=== PATIENT | female | born 1965 | race Caucasian/White ===

== ENCOUNTER → 2017-12-12 | Outpatient (CLI) | payer OTHER ==
--- NOTE | 2017-12-12 16:24 | DIAGNOSTIC IMAGING REPORT ---
LUMBAR SPINE 2 OR 3 VIEWS CLINICAL HISTORY: 52 years-old Female presenting with LOW BACK PAIN. TECHNIQUE: Frontal, lateral, and coned in lateral views of lumbar spine were obtained. COMPARISON: None. FINDINGS: No significant scoliosis. Normal lumbar lordosis. Vertebral bodies maintain normal height and alignment. Intervertebral disc heights preserved. Minimal osteophytosis noted at L5-S1. No other significant degenerative change. No radiographic evidence of osseous neural foraminal narrowing allowing for suboptimal positioning on lateral view. No compression deformity or subluxation. Sacroiliac joints congruent. Arcuate lines of the sacrum intact. Lung bases clear. Nonobstructive bowel gas pattern. No evidence of nephrolithiasis. IMPRESSION: No advanced degenerative change or radiographic evidence of acute osseous Electronically signed by: Carlos Alberto Villafuerte M.D. 12/12/2017 4:23 PM Dictated Date/Time: 12/12/2017 4:21 PM
== END | disposition home or self-care (01) ==
LOC: C.RAD 15:46
PROVIDERS: ATTEND Family Medicine
DX: M54.5 Low back pain (principal)

== ENCOUNTER 2021-11-17 12:09 | Observation (INO) ==
--- NOTE | 2021-11-17 12:40 | XRay Report ---
XR chest 2V PA/lateral CLINICAL HISTORY: Chest Pain. COMPARISON STUDY: 04/19/2019 TECHNIQUE: 2 views of the chest FINDINGS: Frontal and lateral radiographs of the chest demonstrate the cardiomediastinal silhouette to be withi n normal limits. There is a decreased inspiratory effort with elevation of the hemidiaphragms and microstrategy architect wding of the bronchovascular markings at the lung bases and centrally. The lungs are clear of alveola r opacities. There is no evidence for effusion bilaterally. There is no evidence for vascular congest ion. There is no acute osseous pathology. IMPRESSION: 1. There is a decreased inspiratory effort with otherwise no acute chest disease. ACT 112: Negative or not required by law. Electronically signed by: Arie Pierce M.D. 11/17/2021 12:39 PM
[2021-11-17 13:12] LABS: Basophils # (auto) 0.05 K/uL (0-0.2); Basophils % (auto) 0.6 %; Eosinophils # (auto) 0.41 K/uL (0-0.5); Eosinophils % (auto) 4.8 %; Hematocrit (blood only) 39.8 % (37-47); Immature Granulocytes # (auto) 0.02 K/uL (0.00-0.02); Immature Granulocytes % (auto) 0.2 %; Lymphocytes # (auto) 2.33 K/uL (1.2-3.4); Lymphocytes % (auto) 27.4 %; Mean Corpuscular Hemoglobin 28.4 pg (25-34); Mean Corpuscular Hgb Conc 32.7 g/dL (32-36); Mean Corpuscular Volume 86.9 fL (80-100); Mean Platelet Volume 9.8 fL (7.4-10.4); Monocytes # (auto) 0.53 K/uL (0.11-0.59); Monocytes % (auto) 6.2 %; Neutrophils # (auto) 5.16 K/uL (1.4-6.5); Neutrophils % (auto) 60.8 %; Platelet Count 439 K/uL (130-400); RDW Coefficient of Variation 15.8 % (11.5-14.5); RDW Standard Deviation 50.5 fL (36.4-46.3); Red Blood Count 4.58 M/uL (4.2-5.4)
[2021-11-17 13:21] LABS: Partial Thromboplastin Time 26.2 Seconds (21.0-31.0); Prothrombin Time 10.6 Seconds (9.0-12.0)
[2021-11-17 13:34] LABS: Albumin Globulin Ratio 1.5 (0.9-2); Albumin Level 4.2 gm/dl (3.4-5.0); Bilirubin,Total 0.3 mg/dl (0.2-1.0); Calcium 9.4 mg/dl (8.5-10.1); Creatinine Clr Calc Pharmacy 76.3 ml/min; Est GFR (African American) 103.3 ml/min; Est GFR (Non-African American) 89.1 ml/min; Globulin 2.8 gm/dl (2.5-4.0); Potassium 4.2 mmol/L (3.5-5.1)
[2021-11-17] MEDS ORDERED: ASPIRIN CHEW 324 MG PO STA (14:15)
[2021-11-17 14:18] LABS: D Dimer 260 ug/L FEU (0-500)
--- NOTE | 2021-11-17 14:47 | History & Physical Report ---
Date of Service November 17, 2021 Assessment & Plan (1) Chest pain: Plan: - Initial troponin 2.3, repeat 2.4. - D-dimer negative. - EKG without ST segment or T wave inversions, normal sinus rhythm and regular rate. - Continue to trend troponin, EKG with chest pains. - TSH with reflex T4 ordered given hx of tachycardia - Had been prescribed metoprolol previously for tachycardia, however patient has chosen not to take. - Patient has chronic SOB with exertion, states she can walk about a block before getting winded. Unknown if she would tolerate an exercise stress test. She had previously refused a dobutamine stress test because she would not allow an IV to be placed. Will make her NPO at midnight in case decision is made tomorrow to perform stress test. - Suspect her chest pain/tachycardia may be partially related to stressors in her personal life. She appeared tearful and anxious at one point during my visit, seemed to be arguing with someone on the phone prior to my entry. Per previous psychiatry note, it seems patient has had several deaths in family and previous life events that she admits causes her to frequently be very stressed and anxious. (2) Type 2 diabetes mellitus: Plan: - On metformin at home, will hold this. - Accu-Cheks with meals and bedtime, sliding scale insulin. - A1c in AM. - Heart healthy/CC diet - Prescribed gabapentin for neuropathy, however she doesn't take it. (3) Bipolar affective disorder: Plan: - Continue Viibryd, Topamax. (4) Generalized anxiety disorder: Plan: -Continue clonazepam 0.5 mg HS (sometimes requires second dose if first not effective after one hour). Plan: -Admit to med/tele. -SCDs, Lovenox for DVT ppx. -Full Code. History of Present Illness Primary Care Provider: Jackie Waddell DO Patient is a 55-year-old female with past medical history DM2, anxiety, bipolar affective disorder, PTSD, previous drug use now in remission who presents today with pain since this morning. Patient was sitting down when she had onset of left-sided chest pain, rated 77.5/10 in intensity. She describes the pain sensation as if someone is pushing on her chest. It is not better or worse with position changes, nonreproducible, or worse with respirations. Reports some shortness of breath with it but denies nausea/vomiting, diaphoresis, radiation of it to arm/neck/jaw/back. She had not taken anything at home for alleviation, and decided to present for evaluation as she states she has actually been having chest pain every 3 to 4 days for the past several years. Typically only last 3 to 5 minutes and can be associated with her heart racing, both at rest and exertion. She states she is a very anxious person and gets worked up often, which causes her heart to race like this and brings on the chest pain. Prior to today's events, she states she has been in her normal state of health, denies fever/chills, night sweats, myalgias, weakness, dyspnea at rest, cough, congestion, orthopnea, PND, edema, abdominal pain, nausea, vomiting, diarrhea, constipation. She took her regular scheduled ASA 81 this morning prior to arriv al and received an additional dose of 243 mg of aspirin in ED, rates her pain now is a 3-4. Patient was evaluated for similar episode of chest pain in March 2019. At that time, she had an event monitor which revealed NSR with episodes of chest pain that coincided with sinus tachycardia. Exercise stress test was also done then, no ischemic changes noted on stress echo at 80% MPHR with appropriate blood pressure and no arrhythmias noted. In ED, vital signs stable and within normal limits. Labs significant for alk phos elevated 123, initial troponin negative at 2.3, repeat 2 hours later 2.4. All other labs unremarkable. Chest x-ray showed decreased inspiratory effort, otherwise no acute cardiopulmonary disease. Allergies Allergy/AdvReac Type Severity Reaction Status Date / Time iodine Allergy Severe CAN'T Verified 11/17/21 13:54 REMEMBER duloxetine [From Cymbalta] Allergy Unknown CAN'T Verified 11/17/21 13:54 REMEMBER meperidine [From Demerol] Allergy Unknown CAN'T Verified 11/17/21 13:54 REMEMBER propoxyphene Allergy Unknown CAN'T Verified 11/17/21 13:54 [From Darvocet-N] REMEMBER sertraline [From Zoloft] Allergy Unknown CAN'T Verified 11/17/21 13:54 REMEMBER Home Medications Medication Instructions Recorded Confirmed Type cetirizine 10 mg tablet 10 mg PO DAILY 04/01/19 11/17/21 History vilazodone 20 mg tablet (Viibryd) 20 mg PO QAM tab 04/01/19 11/17/21 History aspirin 81 mg tablet,delayed 81 mg PO DAILY 03/23/20 11/17/21 History release (Adult Aspirin Regimen) celecoxib 200 mg capsule 200 mg PO BID 11/17/21 11/17/21 History clonazepam 0.5 mg tablet 0.5 mg PO HS 11/17/21 11/17/21 History cyanocobalamin (vitamin B-12) 500 500 mcg PO DAILY 11/17/21 11/17/21 History mcg tablet cyclobenzaprine 5 mg tablet 5 - 10 mg PO HS PRN 11/17/21 11/17/21 History metformin 1,000 mg tablet 1,000 mg PO BID 11/17/21 11/17/21 History topiramate 100 mg capsule 100 mg PO HS 11/17/21 11/17/21 History sprinkle,extended release 24 hr Past Med/Surg History Medical History (Updated 11/17/21 @ 15:14 by Shaheen Rodriguez MD) Abnormal ECG Bipolar affective disorder Family history of premature CAD Generalized anxiety disorder History of drug abuse Myocardial infarction Palpitations PTSD (post-traumatic stress disorder) Syncope and collapse Type 2 diabetes mellitus Family History Other Coronary heart disease Family history of premature CAD Social History Smoking Status: Never smoker Preferred Language: Cook Islander Feels Safe at Home: Yes Review of Systems Review of Systems: Constitutional: No fever/chills, weakness, fatigue, myalgias, anorexia, night sweats Eyes: No diplopia, no worsening or blurred vision ENT: normal hearing, no trouble swallowing Respiratory: No cough, sputum, dyspnea at rest or on exertion Cardiovascular: No chest pain, tightness or palpitations Abdomen: No pain, nausea, vomiting, diarrhea or constipation : Denies dysuria, hematuria, increased urgency/frequency, urinary retention Musculoskeletal: No joint pain, calf pain, swelling Neurologic: No weakness, numbness/tingling, or balance problems Psychiatric: No anxiety or depression Skin: No rash or itch Physical Exam Physical Exam: General: awake, alert, no apparent distress Head: Normocephalic, atraumatic ENT: PERRL, EOMI, no pharyngeal exudate, mucous membranes moist Chest: Clear to auscultation, on room air, no adventitious breath sounds Cardiac: Regular rate and rhythm, no murmur, no JVD, normal peripheral pulses, good capillary refill Abdominal: NABS x 4 quadrants, soft, nontender to palpation, no rebound, guarding or tenderness Extremities: Normal inspection, no peripheral edema or erythema, calfs nontender to palpation Psych: Normal mood and affect Neuro: AAO x 3, strength intact bilaterally and rated 5/5, no motor deficits, speech is clear, no peripheral sensory deficits Skin: no rash or erythema Results & Data Results & Data ([facility]) Vital Signs (Past 12 Hours) Vital Signs Temp Pulse Pulse Resp BP BP Pulse Ox 11/17/21 13:19 69 18 118/74 97 11/17/21 12:12 36.8 C 81 18 116/81 96 Laboratory Results Abnormal lab results 11/17/21 11/17/21 Range/Units 12:52 12:52 RDW Std Deviation 50.5 H (36.4-46.3) fL RDW Coeff of Claudette 15.8 H (11.5-14.5) % Plt Count 439 H (130-400) K/uL Alkaline Phosphatase 123 H (34-104) U/L Diagnostic Findings Chest X-Ray 11/17/21 12:16 XR chest 2V PA/lateral CLINICAL HISTORY: Chest Pain. COMPARISON STUDY: 04/19/2019 TECHNIQUE: 2 views of the chest FINDINGS: Frontal and lateral radiographs of the chest demonstrate the cardiomediastinal silhouette to be within normal limits. There is a decreased inspiratory effort with elevation of the hemidiaphragms and crowding of the bronchovascular markings at the lung bases and centrally. The lungs are clear of alveolar opacities. There is no evidence for effusion bilaterally. There is no evidence for vascular congestion. There is no acute osseous pathology. IMPRESSION: 1. There is a decreased inspiratory effort with otherwise no acute chest disease. ACT 112: Negative or not required by law. Electronically signed by: Arie Pierce M.D. 11/17/2021 12:39 PM ECG Additional Comments: Normal sinus rhythm Normal ECG When compared with ECG of 19-APR-2019 15:14, No significant change was found Upon my review, there are no ST segment or T wave changes. NSR, regulra rate. Code Status & VTE Plan Code Status Full code. Supervising Physician Co-Signing Physician Notes Patient seen and examined, chart reviewed, case discussed with Tatyana Toussaint and I agree with the assessment and plan as above except as otherwise noted above. General: A&Ox3. NAD. Cooperative. HEENT: Atraumatic, normocephalic. Pulm: CTAB A&P. -wheezes, -rales, -rhonchi. Symmetrical chest rise. No increase work of breathing. No respiratory distress. Cardiac: RRR, -mrg. Radial pulses intact and symmetrical. Abdominal: Nontender, nondistended, soft. BS present. All labs and images reviewed Chest pain , recent increase in anxiety. CP improved at assessment. Cardiac r/o with serial troponins as above. PG Care Time/CCT Total # of Minutes Spent Total Time Spent with Patient: Total time spent is greater than 50% in coordination of care (as documented) at patient's floor/unit and/or counseling patient: Coding Level of Care Code INT OBSERVATION CARE 70M LVL 3 Diagnoses Chest pain R07.9 Type 2 diabetes mellitus E11.9 Bipolar affective disorder F31.9 Generalized anxiety disorder F41.1
--- NOTE | 2021-11-17 15:14 | Emergency Department Note ---
Impression & Plan Retrosternal chest pain ED Provider Note INFORMANT: Patient ED PROVIDER(S): Shaheen Rodriguez MD CHIEF COMPLAINT: Chest pain PLAN: Disposition: Admitted Condition: Good Outpatient prescription management: none Referral: None MEDICAL DECISION MAKING: Patient presented emergency department complaining of chest pain. She has a family history of coronary disease and notes prior history of personal heart related issues. She had unremarkable CBC and chemistry panel. Troponin and D-dimer were negative. Chest x-ray was negative. ECG did not show any significant abnormalities however she was pain-free at the time. I discussed further management in the hospital. Patient was in agreement. [facility]ation [facility] with [facility]. Patient was evaluated in the ER admitted for further management Triage Nursing notes reviewed and agree them. Vital Signs: reviewed and remarkable for no significant abnormalities Differential diagnosis: Cardiac ischemia, aortic dissection, pulmonary embolism, pneumothorax, pneumonia, pericarditis, myocarditis, esophageal rupture, GERD, cholecystitis, pancreatitis, musculoskeletal, as well as other pathologies. Diagnostics interpreted by me: EC Lead ECG performed and revealed Normal sinus rhythm at 68, normal [place], QRS normal. No elevation or depression. No PACs or PVCs Cardiac Monitoring: Cardiac monitoring ordered by me: The patient was placed on continuous cardiac monitoring and observed. It revealed a normal sinus rhythm at 74beats per minute without ectopy or evidence of dysrhythmia. Imaging studies: Chest x-ray. Findings: A chest x-ray was performed and revealed no pneumothorax, effusion, infiltrate, pulmonary edema, free air under the diaphragm, or wide mediastinum. Impression: No acute disease. HPI: The patient is a 55 year old female who presents to the Emergency Room with complaints of retrosternal chest pain. This started just prior to arrival and is currently resolved. The patient also notes the following associated symptoms, mild shortness of breath. The patient has taken no medication for relieving factors. Current pain is rated as 0/10. Pain was a 7 out of 10. Pt denies LOC, headache, fevers, chills, diaphoresis, visual changes, neck pain, nausea, vomiting, abdominal pain, back pain, melena, hematochezia, urinary symptoms, numbness, weakness, lymphadenopathy, rash, or other complaints. ROS: See above HPI for pertinent positives & negatives. A total of 10 systems reviewed and were otherwise negative. PAST MEDICAL HISTORY:See Below , CAD, bipolar PAST SURGICAL HISTORY:See Below, FAMILY HISTORY:See Below, CAD. Brother from heart disease at 54. SOCIAL HISTORY:See Below, non-smoker HOME MEDICATIONS:See Below ALLERGIES:See Below VITALS:See Below PHYSICAL EXAMINATION: GENERAL: Awake, alert, well-appearing, in no distress HENT: Normocephalic, atraumatic. Oropharynx unremarkable. EYES: Normal conjunctiva. Sclera non-icteric. NECK: Inspection normal. Non-tender. Supple. No nuchal rigidity. FROM. No masses. RESPIRATORY: Clear to auscultation. No wheezes. No rales. Normal respiratory effort. CARDIAC: Normal rate. Normal rhythm. No murmurs. No rubs. Extremities warm and well perfused. Pulses equal. No JVD. GI: Soft, non-distended. No tenderness to palpation. No rebound or guarding. No masses. RECTAL: Deferred. MUSCULOSKELETAL: Atraumatic. Chest examination reveals no tenderness. The back is symmetrical on inspection without obvious abnormality. There is no CVA tenderness to palpation. No joint edema. LOWER EXTREMITIES: Calves are equal size bilaterally and non-tender. No edema. No discoloration. NEURO: Normal sensorium. No sensory or motor deficits noted. SKIN: No rash or jaundice noted. Shaheen Rodriguez MD Past Med/Surg History Medical History (Updated 11/17/21 @ 15:14 by Shaheen Rodriguez MD) Abnormal ECG Bipolar affective disorder Family history of premature CAD Generalized anxiety disorder History of drug abuse Myocardial infarction Palpitations PTSD (post-traumatic stress disorder) Syncope and collapse Type 2 diabetes mellitus Family History Other Coronary heart disease Family history of premature CAD Social History Smoking Status: Never smoker Preferred Language: Taiwanese Feels Safe at Home: Yes Allergies Allergies Allergy/AdvReac Type Severity Reaction Status Date / Time iodine Allergy Severe CAN'T Verified 11/17/21 13:54 REMEMBER duloxetine [From Cymbalta] Allergy Unknown CAN'T Verified 11/17/21 13:54 REMEMBER meperidine [From Demerol] Allergy Unknown CAN'T Verified 11/17/21 13:54 REMEMBER propoxyphene Allergy Unknown CAN'T Verified 11/17/21 13:54 [From Darvocet-N] REMEMBER sertraline [From Zoloft] Allergy Unknown CAN'T Verified 11/17/21 13:54 REMEMBER Home Meds Home Medications Medication Instructions Recorded Confirmed cetirizine 10 mg tablet 10 mg PO DAILY 04/01/19 11/17/21 vilazodone 20 mg tablet (Viibryd) 20 mg PO QAM tab 04/01/19 11/17/21 aspirin 81 mg tablet,delayed 81 mg PO DAILY 03/23/20 11/17/21 release (Adult Aspirin Regimen) celecoxib 200 mg capsule 200 mg PO BID 11/17/21 11/17/21 clonazepam 0.5 mg tablet 0.5 mg PO HS 11/17/21 11/17/21 cyanocobalamin (vitamin B-12) 500 500 mcg PO DAILY 11/17/21 11/17/21 mcg tablet cyclobenzaprine 5 mg tablet 5 - 10 mg PO HS PRN 11/17/21 11/17/21 metformin 1,000 mg tablet 1,000 mg PO BID 11/17/21 11/17/21 topiramate 100 mg capsule 100 mg PO HS 11/17/21 11/17/21 sprinkle,extended release 24 hr Results & Data (ED) Vital Signs Vital Signs - 24 hr 11/17/21 12:12 11/17/21 13:19 11/17/21 14:56 Temperature 36.8 C Temperature Source Oral Pulse Rate 81 Pulse Rate [Apical] 69 74 Respiratory Rate 18 18 16 Blood Pressure 116/81 Blood Pressure [Left Arm] 118/74 105/76 Blood Pressure Mean 92 Blood Pressure Mean [Left Arm] 88 85 Blood Pressure Position Sitting Pulse Oximetry 96 97 95 Oxygen Delivery Method Room Air Room Air Sepsis Recent Fever Within 48 Hours No Sepsis New/Unexplained Change in Mental Status No Sepsis Action Taken by Nursing No Action Required Laboratory Data Result diagrams: 11/17/21 12:52 11/17/21 12:52 Lab Results 11/17/21 11/17/21 11/17/21 Range/Units 12:52 12:52 12:52 WBC 8.50 (4.8-10.8) K/uL RBC 4.58 (4.2-5.4) M/uL Hgb 13.0 (12.0-16.0) g/dL Hct 39.8 (37-47) % MCV 86.9 (80-100) fL MCH 28.4 (25-34) pg MCHC 32.7 (32-36) g/dL RDW Std Deviation 50.5 H (36.4-46.3) fL RDW Coeff of Claudette 15.8 H (11.5-14.5) % Plt Count 439 H (130-400) K/uL MPV 9.8 (7.4-10.4) fL Immature Gran % (Auto) 0.2 % Neut % (Auto) 60.8 % Lymph % (Auto) 27.4 % [place] % (Auto) 6.2 % Eos % (Auto) 4.8 % Baso % (Auto) 0.6 % Neut # (Auto) 5.16 (1.4-6.5) K/uL Lymph # (Auto) 2.33 (1.2-3.4) K/uL [place]aston # (Auto) 0.53 (0.11-0.59) K/uL Eos # (Auto) 0.41 (0-0.5) K/uL Baso # (Auto) 0.05 (0-0.2) K/uL Immature Gran # (Auto) 0.02 (0.00-0.02) K/uL PT 10.6 (9.0-12.0) Seconds INR 1.0 (0.9-1.1) APTT 26.2 (21.0-31.0) Seconds PTT Ratio 1.0 D-Dimer (0-500) ug/L FEU Sodium (136-145) mmol/L Potassium (3.5-5.1) mmol/L Chloride (98-107) mmol/L Carbon Dioxide (21-32) mmol/L Anion Gap (3-11) BUN (6-23) mg/dl Creatinine (0.6-1.2) mg/dl Est Cr Clr Drug Dosing ml/min Est GFR ( Amer) ml/min Est GFR (Non-Af Amer) ml/min BUN/Creatinine Ratio (10-20) Glucose (70-99(Fasting)) mg/dl Calcium (8.5-10.1) mg/dl Total Bilirubin (0.2-1.0) mg/dl AST (13-39) U/L ALT (7-52) U/L Alkaline Phosphatase (34-104) U/L Troponin I High Sens 2.3 (0-14) pg/ml Total Protein (6.0-8.3) gm/dl Albumin (3.4-5.0) gm/dl Globulin (2.5-4.0) gm/dl Albumin/Globulin Ratio (0.9-2) 11/17/21 11/17/21 Range/Units 12:52 12:52 WBC (4.8-10.8) K/uL RBC (4.2-5.4) M/uL Hgb (12.0-16.0) g/dL Hct (37-47) % MCV (80-100) fL MCH (25-34) pg MCHC (32-36) g/dL RDW Std Deviation (36.4-46.3) fL RDW Coeff of Claudette (11.5-14.5) % Plt Count (130-400) K/uL MPV (7.4-10.4) fL Immature Gran % (Auto) % Neut % (Auto) % Lymph % (Auto) % [place] % (Auto) % Eos % (Auto) % Baso % (Auto) % Neut # (Auto) (1.4-6.5) K/uL Lymph # (Auto) (1.2-3.4) K/uL [place]aston # (Auto) (0.11-0.59) K/uL Eos # (Auto) (0-0.5) K/uL Baso # (Auto) (0-0.2) K/uL Immature Gran # (Auto) (0.00-0.02) K/uL PT (9.0-12.0) Seconds INR (0.9-1.1) APTT (21.0-31.0) Seconds PTT Ratio D-Dimer 260 (0-500) ug/L FEU Sodium 139 (136-145) mmol/L Potassium 4.2 (3.5-5.1) mmol/L Chloride 107 (98-107) mmol/L Carbon Dioxide 25 (21-32) mmol/L Anion Gap 7 (3-11) BUN 12 (6-23) mg/dl Creatinine 0.75 (0.6-1.2) mg/dl Est Cr Clr Drug Dosing 76.3 ml/min Est GFR ( Amer) 103.3 ml/min Est GFR (Non-Af Amer) 89.1 ml/min BUN/Creatinine Ratio 16.0 (10-20) Glucose 76 (70-99(Fasting)) mg/dl Calcium 9.4 (8.5-10.1) mg/dl Total Bilirubin 0.3 (0.2-1.0) mg/dl AST 14 (13-39) U/L ALT 12 (7-52) U/L Alkaline Phosphatase 123 H (34-104) U/L Troponin I High Sens (0-14) pg/ml Total Protein 7.0 (6.0-8.3) gm/dl Albumin 4.2 (3.4-5.0) gm/dl Globulin 2.8 (2.5-4.0) gm/dl Albumin/Globulin Ratio 1.5 (0.9-2) Administered Medications Discontinued Medications Aspirin (Aspirin Chew 324 Mg) 243 mg PO NOW STA Stop: 11/17/21 14:16 Last Admin: 11/17/21 14:35 Dose: 243 mg Documented by: [id number] Imaging Data Radiologist's Impression: Chest X-Ray 11/17/21 12:16 XR chest 2V PA/lateral CLINICAL HISTORY: Chest Pain. COMPARISON STUDY: 04/19/2019 TECHNIQUE: 2 views of the chest FINDINGS: Frontal and lateral radiographs of the chest demonstrate the cardiomediastinal s ilhouette to be within normal limits. There is a decreased inspiratory effort with elevation of the hemidiaphragms and crowding of the bronchovascular markings at the lung bases and centrally. The lungs are clear of alveolar opacities. There is no evidence for effusion bilaterally. There is no evidence for vascular congestion. There is no acute osseous pathology. IMPRESSION: 1. There is a decreased inspiratory effort with otherwise no acute chest disease. ACT 112: Negative or not required by law. Electronically signed by: Arie Pierce M.D. 11/17/2021 12:39 PM Discharge Plan Visit Data Chief Complaint: Chest Pain Stated Complaint: CHEST PAIN, SOB ED Provider: Shaheen Rodriguez Discharge Problem: Retrosternal chest pain Forms Stand Alone Forms: My [facility] [email or web address] Prescriptions Prescriptions: No Action Viibryd 20 mg tablet 20 mg PO QAM RF: 0 cetirizine 10 mg tablet 10 mg PO DAILY RF: 0 aspirin [Adult Aspirin Regimen] 81 mg tablet,delayed release (DR/EC) 81 mg PO DAILY RF: 0 celecoxib 200 mg capsule 200 mg PO BID RF: 0 clonazepam 0.5 mg tablet 0.5 mg PO HS RF: 0 cyanocobalamin (vitamin B-12) 500 mcg tablet 500 mcg PO DAILY RF: 0 metformin 1,000 mg tablet 1,000 mg PO BID RF: 0 cyclobenzaprine 5 mg tablet 5 - 10 mg PO HS PRN (Reason: MUSCLE SPASMS) RF: 0 topiramate 100 mg cap,sprinkle,ER 24hr dose pack 100 mg PO HS RF: 0 Referrals Referrals: Jackie Waddell DO [Primary Care Provider] -
--- NOTE | 2021-11-17 17:10 | Electrocardiogram Report ---
Test Reason : Blood Pressure : / mmHG Vent. Rate : 068 BPM Atrial Rate : 068 BPM P-R Int : 134 ms QRS Dur : 074 ms QT Int : 410 ms P-R-T Axes : 047 016 034 degrees QTc Int : 435 ms Poor data quality, interpretation may be adversely affected Normal sinus rhythm Normal ECG When compared with ECG of 19-APR-2019 15:14, No significant change was found Confirmed by Bandar Mary ([id number]) on 11/17/2021 5:09:55 PM Referred By: Confirmed By:Bandar Mary
[2021-11-17] MEDS ORDERED: GLUCOSE 10 TABS/TUBE PO PRN (17:35)
[2021-11-17] MEDS ORDERED: POLYETHYLENE (MIRALAX) 17 GM PACK PO PRN (17:35)
[2021-11-17] MEDS ORDERED: GLUCAGON FOR INJ 1 MG VIAL SQ PRN (17:35)
[2021-11-17] MEDS ORDERED: CYCLOBENZAPRINE HCL 5 MG TAB PO PRN (17:35)
[2021-11-17] MEDS ORDERED: ACETAMINOPHEN 325 MG TAB PO PRN (17:35)
[2021-11-17] MEDS ORDERED: ONDANSETRON INJ 2 MG/ML 2 ML VIAL IV PRN (17:35)
[2021-11-17] MEDS ORDERED: GLUCOSE 40% GEL 15 GM TUBE PO PRN (17:35)
[2021-11-17] MEDS ORDERED: DEXTROSE 50% 50 ML SYRINGE IV PRN (17:35)
[2021-11-17] MEDS ORDERED: CARBOHYDRATES FOR HYPOGLYCEMIA PO PRN (17:35)
[2021-11-17] MEDS ORDERED: NITROGLYCERIN SL 0.4 MG/TAB TAB SL PRN (17:35)
[2021-11-17 17:55] LABS: Thyroid Stimulating Hormone 5.254 uIu/ml (0.300-4.500)
[2021-11-17] MEDS ORDERED: NITROGLYCERIN 2% OINTMENT 30GM TUBE EXT SCH (18:00)
[2021-11-17] MEDS: INSULIN ASPART PER UNIT SC SCH ×2 (18:05→22:48)
[2021-11-17 18:26] LABS: T4 Free Thyroxine 0.83 ng/dl (0.61-1.60)
[2021-11-17] MEDS ORDERED: ENOXAPARIN INJ 40 MG/0.4 ML SYR SQ SCH (19:00)
[2021-11-17] MEDS: CeleBREX 200 MG CAP PO SCH (20:35)
[2021-11-17] MEDS ORDERED: clonazePAM 0.5 MG TAB PO SCH (21:00)
[2021-11-17] MEDS ORDERED: TOPIRAMATE 100 MG TAB PO SCH (21:00)
[2021-11-18 05:16] LABS: Basophils # (auto) 0.03 K/uL (0-0.2); Basophils % (auto) 0.4 %; Eosinophils # (auto) 0.38 K/uL (0-0.5); Eosinophils % (auto) 4.8 %; Hematocrit (blood only) 39.1 % (37-47); Hemoglobin 12.7 g/dL (12.0-16.0); Immature Granulocytes # (auto) 0.02 K/uL (0.00-0.02); Immature Granulocytes % (auto) 0.3 %; Lymphocytes # (auto) 2.61 K/uL (1.2-3.4); Lymphocytes % (auto) 33.1 %; Mean Corpuscular Hgb Conc 32.5 g/dL (32-36); Mean Corpuscular Volume 86.3 fL (80-100); Mean Platelet Volume 10.1 fL (7.4-10.4); Monocytes # (auto) 0.46 K/uL (0.11-0.59); Monocytes % (auto) 5.8 %; Neutrophils # (auto) 4.38 K/uL (1.4-6.5); Neutrophils % (auto) 55.6 %; Platelet Count 393 K/uL (130-400); RDW Coefficient of Variation 15.7 % (11.5-14.5); RDW Standard Deviation 50.1 fL (36.4-46.3); Red Blood Count 4.53 M/uL (4.2-5.4); White Blood Count 7.88 K/uL (4.8-10.8)
[2021-11-18 05:43] LABS: Albumin Globulin Ratio 1.3 (0.9-2); Albumin Level 3.7 gm/dl (3.4-5.0); BUN Creatinine Ratio 19.7 (10-20); Bilirubin,Total 0.4 mg/dl (0.2-1.0); Calcium 8.8 mg/dl (8.5-10.1); Creatinine Clr Calc Pharmacy 80.6 ml/min; Est GFR (African American) 110.4 ml/min; Est GFR (Non-African American) 95.2 ml/min; Globulin 2.8 gm/dl (2.5-4.0); Magnesium 2.1 mg/dl (1.7-2.4); Potassium 3.9 mmol/L (3.5-5.1); Total Protein 6.5 gm/dl (6.0-8.3)
[2021-11-18 05:44] LABS: Troponin I High Sensitivity 2.5 pg/ml (0-14)
[2021-11-18 06:45] LABS: Estimated Average Glucose 128 mg/dl; Hemoglobin A1C 6.1 % (4.5-5.6)
[2021-11-18] MEDS ORDERED: ASPIRIN 81 MG ECTAB PO SCH (09:00)
[2021-11-18] MEDS ORDERED: CETIRIZINE HCL 10 MG TABLET PO SCH (09:00)
[2021-11-18] MEDS ORDERED: CYANOCOBALAMIN (B-12) 500 MCG TABLET PO SCH (09:00)
[2021-11-18] MEDS ORDERED: VILAZODONE HCL 20 MG PO SCH (09:00)
[2021-11-18] MEDS: CeleBREX 200 MG CAP PO SCH (09:17)
[2021-11-18] MEDS: INSULIN ASPART PER UNIT SC SCH (09:28)
--- NOTE | 2021-11-18 10:03 | Discharge Summary ---
Date of Service November 18, 2021 Admission HPI Per Admitting Provider Patient is a 55-year-old female with past medical history DM2, anxiety, bipolar affective disorder, PTSD, previous drug use now in remission who presents today with pain since this morning. Patient was sitting down when she had onset of left-sided chest pain, rated 77.5/10 in intensity. She describes the pain sensation as if someone is pushing on her chest. It is not better or worse with position changes, nonreproducible, or worse with respirations. Reports some shortness of breath with it but denies nausea/vomiting, diaphoresis, radiation of it to arm/neck/jaw/back. She had not taken anything at home for alleviation, and decided to present for evaluation as she states she has actually been having chest pain every 3 to 4 days for the past several years. Typically only last 3 to 5 minutes and can be associated with her heart racing, both at rest and exertion. She states she is a very anxious person and gets worked up often, which causes her heart to race like this and brings on the chest pain. Prior to today's events, she states she has been in her normal state of health, denies fever/chills, night sweats, myalgias, weakness, dyspnea at rest, cough, congestion, orthopnea, PND, edema, abdominal pain, nausea, vomiting, diarrhea, constipation. She took her regular scheduled ASA 81 this morning prior to arrival and received an additional dose of 243 mg of aspirin in ED, rates her pain now is a 3-4. Patient was evaluated for similar episode of chest pain in March 2019. At that time, she had an event monitor which revealed NSR with episodes of chest pain that coincided with sinus tachycardia. Exercise stress test was also done then, no ischemic changes noted on stress echo at 80% MPHR with appropriate blood pressure and no arrhythmias noted. In ED, vital signs stable and within normal limits. Labs significant for alk phos elevated 123, initial troponin negative at 2.3, repeat 2 hours later 2.4. All other labs unremarkable. Chest x-ray showed decreased inspiratory effort, otherwise no acute cardiopulmonary disease. Principal Diagnosis Noncardiac chest pain Discharge Exam General: A&Ox3. NAD. Cooperative. HEENT: Atraumatic, normocephalic. Pulm: CTAB A&P. -wheezes, -rales, -rhonchi. Symmetrical chest rise. No increased work of breathing. No respiratory distress. Cardiac: RRR, -mrg. Radial pulses intact and symmetrical. Abdominal: Nontender, nondistended, soft. BS present. Discharge Data Allergies Allergy/AdvReac Type Severity Reaction Status Date / Time iodine Allergy Severe CAN'T Verified 11/17/21 13:54 REMEMBER duloxetine [From Cymbalta] Allergy Unknown CAN'T Verified 11/17/21 13:54 REMEMBER meperidine [From Demerol] Allergy Unknown CAN'T Verified 11/17/21 13:54 REMEMBER propoxyphene Allergy Unknown CAN'T Verified 11/17/21 13:54 [From Darvocet-N] REMEMBER sertraline [From Zoloft] Allergy Unknown CAN'T Verified 11/17/21 13:54 REMEMBER Consultations 11/17/21 15:15 ED Decision to Admit Stat Hospital Course (1) Chest pain: Chest Pain, observed for cardiac r/o with normal trops and no recurrence of sx - Followup with PCP as outpatient can consider updated stress test. Pt has seen cardiology Elia Richards before, f/u with their office is being scheduled. - No new medication changes - Initial troponin 2.3, repeat 2.4, 3rd troponin normal - D-dimer negative. - EKG without ST segment or T wave inversions, normal sinus rhythm and regular rate. - Continue to trend troponin, EKG with chest pains. - TSH with reflex T4 ordered given hx of tachycardia, TSH slightly elevated but fT4 normal - Had been prescribed metoprolol previously for tachycardia, however patient has taken. Normal rate at dc - Suspect her chest pain/tachycardia may be partially related to stressors in her personal life. She appeared tearful and anxious at one point during my visit, seemed to be arguing with someone on the phone prior to my entry. Per previous psychiatry note, it seems patient has had several deaths in family and previous life events that she admits causes her to frequently be very stressed and anxious. (2) Type 2 diabetes mellitus: - On metformin at home, will hold this. - Accu-Cheks with meals and bedtime, sliding scale insulin. - A1c in AM. - Heart healthy/CC diet - Prescribed gabapentin for neuropathy, however she doesn't take it. (3) Bipolar affective disorder: - Continue Viibryd, Topamax. (4) Generalized anxiety disorder: -Continue clonazepam 0.5 mg HS (sometimes requires second dose if first not effective after one hour). -Admit to med/tele. -SCDs, Lovenox for DVT ppx. -Full Code. Total Time Total Time Spent Total Time Spent (In Minutes): Time spend day of discharge 25 minutes including direct care, review of labs and images, and documentation Discharge Plan Discharge Items Patient Disposition: Home - Self-Care Reason For Visit: CHEST PAIN Discharge Diagnosis: Chest pain Activity: Resume your previous activity Non-emergency contact: Primary Care Provider Call non-emergency contact if: you have any medication questions, your symptoms worsen, your pain is not controlled and your pain is worsening Follow-up/Referrals: Elia Richards PA-C [Physician [facility]] - 11/25/21 3:00 pm Jackie Waddell, [Primary Care Provider] - (PLEASE CALL YOUR PRIMARY CARE PROVIDER TO SCHEDULE A DISCHARGE FOLLOW-UP APPOINTMENT WITHIN 7-10 DAYS.) Diet: Carb Consistent or DM2 and Heart Healthy Addtl Attending Provider Instructions: You were seen in the hospital for chest pain. Your EKG did not show signs of a heart attack or heart muscle damage. High-sensitivity troponins were checked x3, these were all normal and did not show any evidence of heart damage or heart attack. Your COVID test was negative. You did not show signs of infection, and your white blood cell count was normal. Is recommended that you follow-up with your primary care provider, who may order a stress test for further restratification however a stress test and cardiac catheterization was not indicated at time of hospital admission. An appointment for follow-up is being scheduled for you with your primary care provider Dr. Waddell. You should be seen within 1 week. You should receive a call to confirm this appointment, if you do not receive a call within 48 hours please contact her office at the number above. If not had new medications prescribed at this time. You have seen [facility] in the past. A followup appointment is being scheduled for you with [facility]. If you develop any new or worsening symptoms including fever, chills, sweats, chest pain, chest pressure, difficulty breathing, uncontrolled nausea/vomiting, rash, wheezing, passing out or nearly passing out, bleeding, black/bloody bowel movements, or other new or concerning symptoms please call your primary care physician, or call 911 for re-evaluation in the emergency department if you are very concerned. Pending Studies at Discharge: No Stand-Alone Forms: [facility], Smoking Cessation Medications and DC Order Prescriptions: Continued Viibryd 20 mg tablet 20 mg PO QAM RF: 0 cetirizine 10 mg tablet 10 mg PO DAILY RF: 0 aspirin [Adult Aspirin Regimen] 81 mg tablet,delayed release (DR/EC) 81 mg PO DAILY RF: 0 celecoxib 200 mg capsule 200 mg PO BID RF: 0 clonazepam 0.5 mg tablet 0.5 mg PO HS RF: 0 cyanocobalamin (vitamin B-12) 500 mcg tablet 500 mcg PO DAILY RF: 0 metformin 1,000 mg tablet 1,000 mg PO BID RF: 0 cyclobenzaprine 5 mg tablet 5 - 10 mg PO HS PRN (Reason: MUSCLE SPASMS) RF: 0 topiramate 100 mg cap,sprinkle,ER 24hr dose pack 100 mg PO HS RF: 0 Discharge Orders: Discharge Order (Routine); Ordered 11/18/21 Ordered By: Carlos Alberto Alcaraz/Other Patient Handouts: Managing Type 2 Diabetes Admission Data Admit Date/Time: 11/17/21 14:50 Attending Provider: Carlos Alberto Miles Admit Provider: Carlos Alberto Miles Primary Care Provider: Jackie Waddell Other Providers: Carlos Alberto Miles Other Interventions: Discharge Summary Assessment (RN) Last Done: 11/18/21 09:38 Coding Level of Care Code 02869 OBS Care - Discharge Diagnoses Chest pain R07.9 Type 2 diabetes mellitus E11.9 Bipolar affective disorder F31.9 Generalized anxiety disorder F41.1
== END 2021-11-18 10:00 | disposition home or self-care (01) ==
LOC: ED 12:09 → 2N 12:09